=== PATIENT | male | born 1970 | race Caucasian/White ===

== ENCOUNTER 2020-07-25 22:37 | Emergency (ER) | payer SELFPAY ==
[~2020-07-25] VITALS: Ht 177.8 cm; Wt 85.0 kg
[2020-07-25] MEDS ORDERED: HYDROmorphone 1 MG/ML, 1ML INJ ONE (22:41)
[2020-07-25] MEDS ORDERED: ONDANSETRON 2MG/ML, 2ML ONE (22:41)
--- NOTE | 2020-07-25 22:50 | NUR ---
Pt with 10/10 pain to left shoulder s/p GLF slipped on ice. Pos csmtp to wrist, a/ox4, no midline cspine tenderness, no loc. denies medical hx or medications. Had 4 beers hour ago, smokes marijuana daily. IV started by Cinda Vargas. Dr Horner at bedside.
[2020-07-25] MEDS ORDERED: ONDANSETRON 2MG/ML, 2ML IVPush ONE (23:00)
[2020-07-25] MEDS ORDERED: PLEASE ENTER ALLERGIES MC SCH (23:00)
[2020-07-25] MEDS ORDERED: HYDROmorphone 1 MG/ML, 1ML INJ IVPush PRN (23:00)
[2020-07-25] MEDS ORDERED: PROPOFOL 10 MG/ML, 20ML ONE (23:11)
[2020-07-25] MEDS ORDERED: PROPOFOL 10 MG/ML, 20ML IVPush ONE (23:30)
[2020-07-25] MEDS ORDERED: FENTANYL PF 100 MCG/2ML ONE (23:34)
[2020-07-25] MEDS ORDERED: MIDAZOLAM 1 MG/ML, 2ML ONE (23:40)
[2020-07-26] MEDS ORDERED: FENTANYL PF 100 MCG/2ML IVPush ONE
[2020-07-26] MEDS ORDERED: MIDAZOLAM 1 MG/ML, 2ML IVPush ONE
[2020-07-26] MEDS ORDERED: PROPOFOL 10 MG/ML, 20ML IVPush ONE
--- NOTE | 2020-07-26 00:25 | NUR ---
Please see procedural sedation paperwork!! Check list completed. Time out done. Pt on monitor, ETCO2, and 02. Ambu bag and suction at ready. Pt medicated with propofol by Physician. Pt medicated with fentanyl for pain, and versed per order. (SEE flow sheet for times and doses) . Pt tolerated procedure well with no adverse symptoms. Shoulder sling/immoblizer in place with + CSM post placement. Pt to x-ray. Pt sitting up in bed, MOA, VSS, on RA, pt A&O. Will contiue to monitor.
[2020-07-26 01:05] VITALS: BP 145/90
--- NOTE | 2020-07-26 01:09 | NUR ---
Pt dc'd to home. Pt states he is walking home and not driving. Pt fully awake, VSS, stable on feet. MOA. IV dc'd intact. Pt states he understands DC instructions. Pt with arm immoblizer in place, + CSM.
== END 2020-07-26 01:12 | disposition home or self-care (01) ==
LOC: ED 23:07
DX: S43.005A Unspecified dislocation of left shoulder joint, initial encounter (principal); W01.0XXA Fall on same level from slipping, tripping and stumbling without subsequent striking against object, initial encounter; Y93.89 Activity, other specified; Y92.488 Other paved roadways as the place of occurrence of the external cause; Y99.8 Other external cause status
CPT/HCPCS: 23650; 73030; 96374; 96375; 99152; 99153; 99285; J1170; J2250; J2405; J3010